=== PATIENT | female | born 1960 | race Caucasian/White ===

== ENCOUNTER 2018-03-10 20:32 | Emergency (ER) | payer OTHER ==
[~2018-03-10] VITALS: Ht 157.5 cm; Wt 72.6 kg
--- OUTSIDE RECORDS SUMMARY | ~2018-03-10 | XMS | Clinical Summary ---
Demographics + + + | Address | [address] [place] [address] | | | [place] [address] | + + + | Home Phone | | + + + | Preferred Language | Unknown | + + + | Marital Status | | + + + | Adventism Affiliation | 1038 | + + + | Race | Unknown | + + + | Ethnic Group | Unknown | + + + Author + + + | Author | [facility] | | | and [place] | + + + | Organization | [facility] | | | and [place] | + + + | Address | Unknown | + + + | Phone | Unavailable | + + + Support + + +---------+ + | Name | Relationship | Address | Phone | + + +---------+ + | Abraham Ruggiero | ECON | Unknown | | + + +---------+ + Care Team Providers + +------+ + | Care Affiliate Manager Name | Role | Phone | + +------+ + | Isidoro Sylvester MD | PP | Unavailable | + +------+ + Allergies + + + + + + | Active Allergy | Reactions | Severity | Noted | Comments | | | | | Date | | + + + + + + | Budesonide | Swelling | Medium | 20 | Facial swelling | | | | | 14 | | + + + + + + | Latex | Rash | Low | 09/04/ | | | | | | 14 | | + + + + + + Current Medications + + +-------+---------+------+------+-------+ | Prescription | Sig. | Disp. | Refills | Star | End | Statu | | | | | | t | Date | s | | | | | | Date | | | + + +-------+---------+------+------+-------+ | levothyroxine | Take 50 mcg by mouth | | | | | Activ | | (SYNTHROID, | every morning | | | | | e | | LEVOTHROID) 50 mcg | (before breakfast). | | | | | | | tablet | | | | | | | + + +-------+---------+------+------+-------+ | Multiple | Take 2 tablets by | | | | | Activ | | Vitamins-Minerals | mouth 2 times daily. | | | | | e | | (MULTIVITAMIN PO) | | | | | | | + + +-------+---------+------+------+-------+ | glyBURIDE | Take 5 mg by mouth | | | | | Activ | | (DIABETA) 5 mg | daily (with | | | | | e | | tablet | breakfast). | | | | | | + + +-------+---------+------+------+-------+ | | Take 1 tablet by | | | | | Activ | | cetirizine-psuedoeph | mouth as needed. | | | | | e | | edrine (ZYRTEC-D | | | | | | | | ALLERGY & | | | | | | | | CONGESTION) 5-120 MG | | | | | | | | per tablet | | | | | | | + + +-------+---------+------+------+-------+ | albuterol 2.5 mg/3 | Take 2.5 mg by | | | | | Activ | | mL nebulizer | nebulization as | | | | | e | | solution | needed. | | | | | | + + +-------+---------+------+------+-------+ | | Take 3 mLs by | | | | | Activ | | albuterol-ipratropiu | nebulization as | | | | | e | | m (DUONEB) 2.5-0.5 | needed. | | | | | | | mg/3 mL SOLN | | | | | | | + + +-------+---------+------+------+-------+ Active Problems + + + | Problem | Noted Date | + + + | Colon cancer screening | 06/10/2014 | + + + | Hypothyroidism | 06/10/2014 | + + + | Diabetes insipidus (HCC) | 06/10/2014 | + + + | Sleep apnea | 06/10/2014 | + + + | Other seborrheic keratosis | | + + + | Undiagnosed cardiac murmurs | | + + + | Precordial pain | | + + + | Calculus of kidney | | + + + | Unspecified hypothyroidism | | + + + + + | Overview: ICD-10 Record update | + + + +---+ | Neutropenia, unspecified | | + +---+ + + | Overview: ICD-10 Record update | + + + +---+ | Extrinsic asthma with exacerbation | | + +---+ | Postsurgical hypothyroidism | | + +---+ | Benign neoplasm of pituitary gland and craniopharyngeal duct | | | (pouch) (HCC) | | + +---+ | Type II or unspecified type diabetes mellitus without mention of | | | complication, not stated as uncontrolled | | + +---+ | Esophageal reflux | | + +---+ | Lumbago | | + +---+ | Contact dermatitis and other eczema, due to unspecified cause | | + +---+ | Unspecified sleep apnea | | + +---+ + + | Overview: ICD-10 Record update | + + + +---+ | Elevated blood pressure reading without diagnosis of hypertension | | + +---+ | Allergic rhinitis, cause unspecified | | + +---+ + + | Overview: ICD-10 Record update | + + + +---+ | Chronic rhinitis | | + +---+ | Unspecified asthma(493.90) | | + +---+ + + | Overview: ICD-10 Record update | + + + +---+ | Other and unspecified diseases of the oral soft tissues | | + +---+ | Edema | | + +---+ | Acute maxillary sinusitis | | + +---+ | Chronic lymphocytic thyroiditis | | + +---+ Social History + +-------+ +--------+------+ | Tobacco Use | Types | Packs/Day | Years | Date | | | | | Used | | + +-------+ +--------+------+ | Never Smoker | | | | | + +-------+ +--------+------+ + +---+---+---+ | Smokeless Tobacco: | | | | | Never Used | | | | + +---+---+---+ + + +---------+ + | Alcohol Use | Drinks/We | oz/Week | Comments | | | ek | | | + + +---------+ + | No | | | | + + +---------+ + + + + | Sex Assigned at | Date Recorded | | | | + + + | Not on file | | + + + Last Filed Vital Signs + + + + | Vital Sign | Reading | Time Taken | + + + + | Blood Pressure | 122/74 | 09/05/2014 1235 PDT | + + + + | Pulse | 66 | 09/05/2014 1235 PDT | + + + + | Temperature | 36.1 C (97 F) | 09/05/2014 1106 PDT | + + + + | Respiratory Rate | 16 | 09/05/2014916 PDT | + + + + | Oxygen Saturation | 93% | 09/05/2014 1235 PDT | + + + + | Inhaled Oxygen | - | - | | Concentration | | | + + + + | Weight | 90.7 kg (200 lb) | 09/05/2014916 PDT | + + + + | Height | 157.5 cm (5' 2") | 09/05/2014916 PDT | + + + + | Body Mass Index | 36.58 | 09/05/2014 0917 PDT | + + + + Plan of Treatment + + + + + | Health Maintenance | Due Date | Last Done | Comments | + + + + + | Hepatitis C | | | | | Screening | 1 | | | + + + + + | Diabetic Eye Exam | | | | | (Bi-Annually) | 9 | | | + + + + + | Diabetic Foot Exam | | | | | | 9 | | | + + + + + | Hemoglobin A1c Q3 | 08/17/197 | | | | Months | 9 | | | + + + + + | Vaccine: | | | | | Dtap/Tdap/Td (1 - | 0 | | | | Tdap) | | | | + + + + + | Vaccine: | | | | | Pneumococcal 19-64 | 0 | | | | (PPSV23 only) Medium | | | | | Risk (1 of 1 - | | | | | PPSV23) | | | | + + + + + | CERVICAL CANCER | | | | | SCREENING (PAP EVERY | 2 | | | | 3 YEARS 21-64 ) | | | | + + + + + | BREAST CANCER | | | | | SCREENING (MAMM Q2 | 1 | | | | YEARS 50-74) | | | | + + + + + | Microalbumin | | | | | Screening | 5 | | | + + + + + | Statin Therapy | | | | | (optimal intensity) | 5 | | | + + + + + | Vaccine: Influenza | | | | | (Season Ended) | 8 | | | + + + + + | COLON CANCER | | 09/05/2014 | | | SCREENING | 4 | | | | (COLONOSCOPY EVERY | | | | | 10 YEARS 50-75) | | | | + + + + + Results Not on filefrom Last 3 Months Insurance + +--------+ +------+ +---------+ | Payer | Benefi | Subscriber | Type | Phone | Address | | | t Plan | ID | | | | | | / | | | | | | | Group | | | | | + +--------+ +------+ +---------+ | [facility] | PHP | xxxxxxxxxxx | PPO | [id number] | | | PLAN | [place] | | | [phone] | | | | [address] | | | | | | | [address] | | | | | + +--------+ +------+ +---------+ + +--------+ +--------+ + + | Guarantor Name | Accoun | Relation to | Date | Phone | Billing Address | | | t Type | Patient | of | | | | | | | | | | + +--------+ +--------+ + + | BRANNON RUGGIERO | Person | Self [birth year] | Home: | [address] | | | al/Christofer | | 1960 | [phone] [place], | | | [place] | | | [phone] | [place] [phone] | + +--------+ +--------+ + +
--- OUTSIDE RECORDS SUMMARY | ~2018-03-10 | XMS | Clinical Summary ---
Demographics + + + | Address | [address] [place] [address] | | | [place] [address] | + + + | Home Phone | | + + + | Preferred Language | Unknown | + + + | Marital Status | | + + + | Anabaptism Affiliation | 1038 | + + + | Race | Unknown | + + + | Ethnic Group | Unknown | + + + Author + + + | Author | [facility] | | | and [place] | + + + | Organization | [facility] | | | and [...] Team Providers + +------+ + | Care Bulk Cooler Installer Name | Role | Phone | + [...] | | + +--------+ +------+ +---------+ | [facility] | PHP | [phone] | PPO | [id number] | | | PLAN | [place] | [...] | | | [place] | | | [phone] | [place] [phone] | + +--------+ +--------+ + +
--- OUTSIDE RECORDS SUMMARY | ~2018-03-10 | XMS | Clinical Summary ---
Demographics + + + | Address | [address] | | | [place] [address] | + + + | Home Phone | | + + + | Preferred Language | Unknown | + + + | Marital Status | | + + + | Yazidi Affiliation | 1038 | + + + | Race | Unknown | + + + | Ethnic Group | Unknown | + + + Author + + + | Author | [facility] | + + + | Organization | [facility] | + + + | Address | Unknown | + + + | Phone | Unavailable | + + + Support + + + + + | Name | Relationship | Address | Phone | + + + + + | Abraham Marks | ECON | [address] | | | | | [place] | | | | | [address] | | + + + + + Care Team Providers + +------+ + | Care Relay Associate Name | Role | Phone | + +------+ + | Clinic, [facility] | PP | Unavailable | | Community | | | + +------+ + Allergies Not on File Current Medications Not on file Active Problems Not on file Social History + +-------+ +--------+------+ | Tobacco Use | Types | Packs/Day | Years | Date | | | | | Used | | + +-------+ +--------+------+ | Never Assessed | | | | | + +-------+ +--------+------+ + + + | Sex Assigned at | Date Recorded | | | | + + + | Not on file | | + + + Plan of Treatment Not on file Results Not on filefrom Last 3 Months"
--- OUTSIDE RECORDS SUMMARY | ~2018-03-10 | XMS | Clinical Summary ---
Demographics + + + | Address | [address] | | | [place] [address] | + + + | Home Phone | | + + + | Preferred Language | Unknown | + + + | Marital Status | | + + + | Religion Affiliation | 1038 | + + + | Race | Unknown | + + + | Ethnic Group | Unknown | + + + Author + + + | Author | [facility] | + + + | Organization | [facility] | + + + | Address | Unknown | + + + | Phone | Unavailable | + + + Support + + + + + | Name | Relationship | Address | Phone | + + + + + | Abraham Marks | ECON | [address] | | | | | [place] | | | | | [phone] | | + + + + + Care Team Providers + +------+ + | Care Audio/Video Engineer Name | Role | Phone | + +------+ + | Clinic, [facility] | PP | Unavailable | | Community [...]
[~2018-03-10 20:32] MED LIST: ALBUTEROL SULF8.5 GM INH; ALBUTEROL2.5 MG/0.5 INH; DDAVP0.1 MG PO; FLUNISOLIDE1 SPRAY; GLYBURIDE2.5 MG PO; IBUPROFEN400 MG; IPRATROPIU0.2 MG/1 M INH; LEVOTHYROXINE25 MCG; ONE-A-DAY ESSE1 EACH PO; ZYRTEC10 MG PO
[2018-03-10] MEDS ORDERED: ACETAMINOPHEN-1 EAC1 PO (23:23)
== END 2018-03-10 23:54 | disposition home or self-care (01) ==
LOC: ED 20:32
DX: S09.90XA Unspecified injury of head, initial encounter (principal); S16.1XXA Strain of muscle, fascia and tendon at neck level, initial encounter; S93.401A Sprain of unspecified ligament of right ankle, initial encounter; S80.02XA Contusion of left knee, initial encounter; E11.9 Type 2 diabetes mellitus without complications; Z88.5 Allergy status to narcotic agent; Z91.040 Latex allergy status; Z88.8 Allergy status to other drugs, medicaments and biological substances; Z88.6 Allergy status to analgesic agent; Z79.899 Other long term (current) drug therapy; V49.49XA Driver injured in collision with other motor vehicles in traffic accident, initial encounter; W22.11XA Striking against or struck by driver side automobile airbag, initial encounter
CPT/HCPCS: 70450; 71045; 72125; 73560; 73610; 99284

== ENCOUNTER 2021-08-05 14:28 | Emergency (ER) | payer OTHER ==
[~2021-08-05] VITALS: Ht 154.9 cm; Wt 104.3 kg
[~2021-08-05 14:28] MED LIST changes: +ACETAMINOPHEN-1 EAC1 PO
[2021-08-05] MEDS ORDERED: ATORVASTATIN CA10 MG PO (14:58)
[2021-08-05] MEDS ORDERED: LEVOTHYROXINE50 MCG PO (14:58)
[2021-08-05] MEDS ORDERED: ZYRTEC-D TABLE1 EACH PO (14:59)
== END 2021-08-05 19:16 | disposition home or self-care (01) ==
LOC: ED 14:28 → EDBD 14:28 → ED 19:16
DX: K59.00 Constipation, unspecified (principal); E11.9 Type 2 diabetes mellitus without complications; Z88.5 Allergy status to narcotic agent; Z91.040 Latex allergy status; Z88.6 Allergy status to analgesic agent; Z88.8 Allergy status to other drugs, medicaments and biological substances; Z79.899 Other long term (current) drug therapy
CPT/HCPCS: 74177; 80053; 85025; 99284-25; Q9967

== ENCOUNTER 2024-11-27 06:55 | Day surgery (SDC) | payer OTHER ==
[~2024-11-27] VITALS: Ht 154.9 cm; Wt 93.0 kg
[~2024-11-27 06:55] MED LIST changes: +ATORVASTATIN CA10 MG PO; +LEVOTHYROXINE50 MCG PO; +ZYRTEC-D TABLE1 EACH PO
[2024-11-27] MEDS ORDERED: LIDOCAINE HCL 1% 5 ML SDV INJ ONE (07:00)
[2024-11-27] MEDS ORDERED: IBLOOD GLUCOSE TEST STRIP 1 EA TEST VI PRN (07:00)
[2024-11-27] MEDS ORDERED: LACTATED RINGER'S 1,000 ML IV SCH (07:00)
[2024-11-27 07:09] VITALS: BP 134/68
--- NOTE | 2024-11-27 07:17 | NUR ---
PT NOT AVAILABLE FOR VISIT. PROVIDED PRAYER.
[2024-11-27] MEDS ORDERED: propofoL 200 MG/20 ML VIAL ONE (08:51)
[2024-11-27] MEDS ORDERED: LIDOCAINE HCL 2% 5 ML SDV ONE (08:53)
--- NOTE | 2024-11-27 09:46 | NUR ---
11/27/24 0946 Vicki Aleman 0935- PT ARRIVES TO THE PACU WITH A NATURAL AIRWAY ON 2L OF O2 VIA NASAL CANNULA. PT IS LAYING ON HER LEFT SIDE. ABDOMEN IS SOFT AND NONDISTENDED. LR IS INFUSING IN HER R AC. ALL MONITORS PUT IN PLACE. VSS. PT IS REACTIVE TO TACTILE STIMULI BUT DOES NOT ANSWER QUESTIONS WHEN ASKED. PT RESTING WITH NO APPARENT DISTRESS. WILL CONTINUE TO MONITOR. 0945- PT IS RESTING WITH HER EYES CLOSED WITH NO APPARENT DISTRESS. VSS.
[2024-11-27 10:19] VITALS: BP 135/78
--- NOTE | 2024-11-27 12:24 | OR ---
[facility] [address] [place], [place] [address] Signed DATE OF OPERATION: 11/27/2024 SURGEON: Will Menendez MD PREOPERATIVE DIAGNOSES: 1. Tortuous colon. 2. Father with colonic polyps in his late 80s. 3. Irritable bowel syndrome with constipation predominant over diarrhea. 4. Hemorrhoids. 5. Pruritus ani. POSTOPERATIVE DIAGNOSES: 1. Tortuous colon. 2. Redundant colon. 3. 4 mm polyp at 25 cm in sigmoid colon. 4. Minimal internal hemorrhoids. 5. Mild pruritus ani. PROCEDURE: Colonoscopy with cold biopsy. ESTIMATED BLOOD LOSS: None. INDICATIONS: Brannon is a 64-year-old obese female, asked to see me for a followup colonoscopy. 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 She said her sister is doing great. Brannon had a colonoscopy at age 54 [address] Saeid Gregory. This was for screening purposes. She had a tortuous colon. She required monitored anesthesia care. Biopsy came back with lymphoid aggregate. He told her to follow up in 10 years. She had told me that her father had developed colon polyps in his late 80s. Of course, he has now . Her mom has also . She describes irritable bowel syndrome consisting mostly of constipation, but sometimes diarrhea. She also describes hemorrhoids. She is also describing some issues with pruritus ani including the burning and itching around the anus. 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 She just has to drink some extra water. In the office, I had given her a pamphlet on colonoscopy. We had reviewed the nature of the test. There is risk including, but not limited to gas bloating, crampy abdominal pain, bleeding, perforation requiring surgery and missed diagnosis. We also discussed the need for monitored anesthesia care given her medical Electronically Signed By: WILL MENENDEZ MD 11/27/24 1224 PATIENT NAME: BRANNON RUGGIERO OPERATIVE REPORT DATE OF : 62 REPORT #: [id number] PHYSICIAN: WILL MENENDEZ MD PCP: MARÍA BRUMFIELD REPORT IS CONFIDENTIAL AND NOT TO BE RELEASED WITHOUT AUTHORIZATION [facility] [address] [place], [place] [address] Signed history along with her obesity and her frail functional status. In that regard, she needed preoperative blood work and an EKG. She had expressed understanding and wished to proceed. She understands an adult person has to take her home afterwards. She had expressed understanding and wished to proceed. PROCEDURE IN DETAIL: Brannon was taken into our endoscopy suite and placed in the left lateral decubitus position. She was given monitored anesthesia care with propofol infusion per our nurse electronic assembler. A digital rectal exam was performed. On inspection, she indeed has mild pruritus ani. She has the pale discoloration and induration of the ridge of the skin with some mild areas of punctate granulomatous tissue. She had no external hemorrhoids. She had good sphincter tone. There were no masses. The adult colonoscope was introduced and advanced under direct visualization of the camera. Unfortunately, her prep was moderate. In the future, she needs to increase the polyethylene glycol up to a full one gallon. She should combine that with some Dulcolax tablets or maybe a bottle of magnesium citrate. We did make it through a long redundant and tortuous colon. Eventually, we were into the cecum. We needed some abdominal compression along with some increase in the propofol infusion. We had to suction out several areas of liquid particulate stool matter. The scope has slowly been withdrawn. We took several pictures throughout for photodocumentation. We could easily see the ileocecal valve. We saw just one tiny sessile polypoid lesion back at 25 cm. It was easily removed with the help of the cold biopsy forceps. There was no diverticula. The rectum was unremarkable. Upon retroflexion of the scope, she does have very minimal internal hemorrhoid tissue. After this, the gas was suctioned out and the colonoscope removed. Brannon tolerated the procedure quite well. RECOMMENDATIONS: I will see Brannon back in my office in 7 to 14 days to review her results. She will need monitored anesthesia care in the future. She will need at least a full gallon of polyethylene glycol in the future combined with Dulcolax tablets or magnesium citrate. She might consider coming every five years because her father has a history of colonic polyps in his late 80s. I will also give her our handout on pruritus ani. Will Menendez MD ALB/MODL /[id number] Electronically Signed By: WILL MENENDEZ MD 11/27/24 1224 PATIENT NAME: BRANNON RUGGIERO OPERATIVE REPORT DATE OF : 62 REPORT #: [id number] PHYSICIAN: WILL MENENDEZ MD PCP: MARÍA BRUMFIELD REPORT IS CONFIDENTIAL AND NOT TO BE RELEASED WITHOUT AUTHORIZATION [facility] [address] [place], [place] [address] Signed cc: MD María Lee PA Copies: WILL MENENDEZ MD, LINDA PA ~ Electronically Signed By: WILL MENENDEZ MD 11/27/24 1224 PATIENT NAME: BRANNON RUGGIERO JO OPERATIVE REPORT DATE OF : 62 REPORT #: [id number] PHYSICIAN: WILL MENENDEZ MD PCP: MARÍA BRUMFIELD REPORT IS CONFIDENTIAL AND NOT TO BE RELEASED WITHOUT AUTHORIZATION
--- NOTE | 2024-11-29 14:41 | PATH ---
[facility] [address] [place], [place] [address] Signed SPECIMEN(S): A COLON POLYP AT 25 CM SPECIMEN SOURCE: A. COLON POLYP AT 25 CM CLINICAL HISTORY: Tortuous colon, family history of polyps. FINAL PATHOLOGIC DIAGNOSIS: Colon, 25 cm, polypectomy: - Hyperplastic polyp BRP MICROSCOPIC EXAMINATION: Histologic sections of all submitted blocks are examined by light microscopy. These findings, together with the gross examination, support the pathologic diagnosis. GROSS DESCRIPTION: The specimen, labeled and designated "Inder Ruggiero, colon polyp at 25 cm," is received in formalin and consists of one calhoun soft tissue fragment, 0.3 cm. Entirely submitted in (A1). AB (under the direct supervision of a pathologist) The Gross Description was prepared using a voice recognition system. The report was reviewed for accuracy; however, sound-alike word errors, addition and/or deletions may occur. If there is any question about this report, please contact Client Services. ADDITIONAL NOTES: Immunohistochemical and/or in situ hybridization studies if performed in this case included appropriate positive controls that reacted as expected. This test was developed and its performance characteristics determined by [email or web address]. It has not been cleared or approved by the U.S. Food and Drug Administration. The FDA has determined that such clearance or approval is not necessary. This test is used for clinical purposes. It should not be regarded as investigational or for research. [email or web address] is certified under the Clinical Laboratory Improvement Amendments of 1988 (CLIA) as qualified to perform high complexity clinical laboratory testing. PATIENT NAME: BRANNON RUGGIERO PATHOLOGY DATE OF : 62 REPORT #: [id number] PHYSICIAN: SHAAN RAMIREZ PCP: MARY ELLEN BRUMFIELD REPORT IS CONFIDENTIAL AND NOT TO BE RELEASED WITHOUT AUTHORIZATION [facility] [address] [facility] [place], [place] [address] Signed PERFORMING LABORATORY: Technical component [email or web address] [address] (CLIA# [id number]). Professional interpretation was performed by [facility] [facility], [address] [place] [address] (CLIA#: [id number]). Diagnostician: Marquez Lee MD Pathologist Electronically Signed 11/29/2024 Copies: ~ PATIENT NAME: BRANNON RUGGIERO PATHOLOGY DATE OF : 62 REPORT #: [id number] PHYSICIAN: SHAAN RAMIREZ PCP: MARY ELLEN BRUMFIELD REPORT IS CONFIDENTIAL AND NOT TO BE RELEASED WITHOUT AUTHORIZATION
== END 2024-11-27 10:44 | disposition home or self-care (01) ==
LOC: DS 06:55
PROVIDERS: ATTEND Colon & Rectal Surgery
PROC: 0DBN8ZZ Excision of Sigmoid Colon, Via Natural or Artificial Opening Endoscopic (ICD-10-PCS; principal; 2024-11-27 09:00)
DX: K63.5 Polyp of colon (principal); K63.89 Other specified diseases of intestine; K58.1 Irritable bowel syndrome with constipation; K64.8 Other hemorrhoids; L29.0 Pruritus ani; E66.9 Obesity, unspecified; E23.2 Diabetes insipidus; E03.9 Hypothyroidism, unspecified; I10 Essential (primary) hypertension; R54 Age-related physical debility; Z83.719 Family history of colon polyps, unspecified; Z88.8 Allergy status to other drugs, medicaments and biological substances; Z68.39 Body mass index [BMI] 39.0-39.9, adult
CPT/HCPCS: 00811; J2003; J2704; J7121